=== PATIENT | female | born 1990 | race Caucasian/White ===

== ENCOUNTER 2022-08-19 05:19 | Day surgery (SDC) | payer OTHER ==
[2022-08-17 11:42] VITALS: BMI 20.9
[2022-08-19] MEDS ORDERED: ONDANSETRON 4 MG/2 ML VIAL IVPUSH PRN (09:32)
[2022-08-19] MEDS ORDERED: oxyCODONE HCL 5 MG TABLET PO PRN (09:32)
[2022-08-19] MEDS ORDERED: LACTATED RINGERS SOLUTION 1,000 ML IV SCH (09:45)
[2022-08-19] MEDS ORDERED: MIDAZOLAM HCL 2 MG/2 ML SINGLE DOSE VIAL ONE (09:51)
[2022-08-19] MEDS ORDERED: PROPOFOL 20 ML ONE (09:51)
[2022-08-19] MEDS ORDERED: ONDANSETRON 4 MG/2 ML VIAL ONE (10:13)
[2022-08-19] MEDS ORDERED: LIDOCAINE 1%/EPI 1:100000 (20 ML MULTI DOSE VIAL) IJ ONE (10:17)
[2022-08-19] MEDS ORDERED: BUPIVACAINE HCL/PF 0.25% (2.5MG/ML) 10 ML VIAL IJ ONE (10:18)
[2022-08-19 10:42] VITALS: RESP 20
[2022-08-19 13:15] VITALS: BP 96/50; PULSE 70; TEMP 97.8
== END 2022-08-19 12:30 | disposition home or self-care (01) ==
LOC: JASU-SURG 05:19
PROVIDERS: ATTEND Surgery Surgical Oncology
PROC: 0HBX0ZX Excision of Left Nipple, Open Approach, Diagnostic (ICD-10-PCS; principal; 2022-08-19 10:00)
DX: D24.2 Benign neoplasm of left breast (principal)
CPT/HCPCS: 81025; 88305-TC